=== PATIENT | female | born 1975 | race Two or more races ===

== ENCOUNTER 2020-11-10 06:20 | Day surgery (SDC) | payer OTHER ==
[2020-11-10] MEDS ORDERED: NAPR500T14 PO (12:30)
[2020-11-10] MEDS ORDERED: MORGIDOX100 MG PO (12:30)
== END 2020-11-10 17:00 | disposition home or self-care (01) ==
LOC: CIR.AMB 06:20
PROVIDERS: ATTEND Obstetrics & Gynecology
DX: D25.0 Submucous leiomyoma of uterus (principal); N84.0 Polyp of corpus uteri; Z20.822 Contact with and (suspected) exposure to COVID-19